=== PATIENT | female | born 1940 | race Caucasian/White ===

== ENCOUNTER 2023-07-31 11:51 | Inpatient (IN) | payer MEDICARE, OTHER ==
[~2023-07-31] VITALS: Ht 167.6 cm; Wt 80.5 kg
[~2023-07-31 11:51] MED LIST: ASCO500C17 PO; ASPI-611 PO; BENA20TA83 PO; CHOL100025 PO; ESTR0.5T6 PO; FLUO40CA PO; GLIP10TA21 PO; HYDR-3964 PO; HYDR12.55 PO; LEVO88TA7 PO; MAGN400T52 PO; METF500T PO; OMEP-84 PO; OXYB5TAB16 PO; SIMV80TA2 PO; VITA-268 PO; ZINC50CA2 PO
[2023-07-31 12:13] LABS: BASOPHILS # (AUTO) 0.1 X10'3 (0-0.2); BASOPHILS % (AUTO) 1.2 % (0-1); EOSINOPHILS # (AUTO) 0.1 X10'3 (0-0.9); EOSINOPHILS % (AUTO) 1.2 % (0-6); HEMATOCRIT 31.1 % (35.0-45.0); HEMOGLOBIN 10.3 g/dl (12.0-16.0); LYMPHOCYTES # (AUTO) 0.4 X10'3 (1.1-4.8); LYMPHOCYTES % (AUTO) 4.1 % (21-51); MEAN CORPUSCULAR HEMOGLOBIN 29.7 PG (27.0-31.0); MEAN CORPUSCULAR HGB CONC 33.2 g/dL (33.0-36.5); MEAN CORPUSCULAR VOLUME 89.6 FL (78-98); MEAN PLATELET VOLUME 9.4 FL (7.4-10.4); MONOCYTES # (AUTO) 0.7 X10'3 (0-0.9); MONOCYTES % (AUTO) 7.4 % (2-12); NEUTROPHILS # (AUTO) 8.6 X10'3 (1.8-7.7); NEUTROPHILS % (AUTO) 86.1 % (42-75); PLATELET COUNT 295 X10'3 (140-440); RED BLOOD COUNT 3.46 X10'6 (4.20-5.60); RED CELL DISTRIBUTION WIDTH 16.4 % (11.5-14.5)
[2023-07-31 12:34] LABS: ALANINE AMINOTRANSFERASE 22 U/L (12-78); ALBUMIN 2.3 G/DL (3.4-5.0); ALBUMIN/GLOBULIN RATIO 0.5 (1.1-1.5); ALKALINE PHOSPHATASE 113 IU/L (46-116); ANION GAP -1 (8-16); ASPARTATE AMINO TRANSFERASE 14 U/L (10-37); BILIRUBIN,TOTAL 0.5 MG/DL (0.1-1.0); BLOOD UREA NITROGEN 55 MG/DL (7-18); BUN/CREATININE RATIO 24.8 (10.0-20.0); CALCIUM 9.2 MG/DL (8.5-10.1); CHLORIDE 86 MMOL/L (99-107); CREATININE 2.22 MG/DL (0.40-0.90); GLUCOSE 375 MG/DL (70-104); PRO BRAIN NATRIURETIC PEPTIDE 5877 PG/ML (0-450); TOTAL PROTEIN 6.5 G/DL (6.4-8.2); eGFR 21 ML/MIN
[2023-07-31] MEDS ORDERED: azithromycin/NS 500mg/250ml 250 ML IV STA (12:38)
[2023-07-31 12:40] LABS: SODIUM 118 MMOL/L (135-145)
[2023-07-31] MEDS ORDERED: CefTRIAXone/D5W-Rocephin 1gm 50 ML IV ONE (12:40)
[2023-07-31 12:41] LABS: POTASSIUM 6.9 MMOL/L (3.5-5.1)
[2023-07-31] MEDS ORDERED: calcium gluconate inj. 2 GM in normal saline 100ml IV soln 100 ML IV STA (12:47)
[2023-07-31] MEDS ORDERED: sodium bicarbonate 0.48mEq/ml 5ml inj. INH STA (12:47)
[2023-07-31] MEDS ORDERED: insulin regular, human 10 units/0.1 ml syringe IV ONE (12:50)
[2023-07-31] MEDS ORDERED: dextrose 50%-water 50ml dispensing syringe IV ONE (12:55)
[2023-07-31] MEDS ORDERED: normal saline 1000ml 1,000 ML IV SCH (13:05)
[2023-07-31] MEDS ORDERED: sodium bicarbonate (8.4%) inj. 100 MEQ in dextrose 5%-water 1,000 ML IV ONE (13:10)
[2023-07-31] MEDS ORDERED: calcium gluconate inj. 1 GM in normal saline 100ml IV soln 100 ML IV STA (13:21)
--- NOTE | 2023-07-31 13:22 | NUR ---
RN CALLED PHARM AND REQ CA GLUCONATE AND BICARB D/T COULD NOT REMOVE FROM [facility]. PHARM WILL PREPARE BICARB AND DEL AND CHG CA GLUCONATE ORD SO IT MAY BE OBTAINED FROM [facility].
[2023-07-31] MEDS ORDERED: calcium gluconate inj. 1 GM in NS 100ml IV soln (110 ML) IV ONE ×2 (13:25→14:25)
[2023-07-31] MEDS ORDERED: calcium gluconate inj. 1 GM in normal saline 50ml IV soln 50 ML IV ONE (13:26)
[2023-07-31] MEDS ORDERED: CALCIUM GLUC 1gm/50ml NACL,iso 50 ML IV ONE ×2 (13:30→14:35)
[2023-07-31] MEDS ORDERED: SODIUM ZIRCONIUM CYCLOSILICATE 10 GM POWD.PACK PO ONE (13:46)
--- NOTE | 2023-07-31 13:48 | NUR ---
2ND IV WILL BE OBTAINED SO CA GLUCONATE AND BICARB CAN RUN AT THE SAME TIME D/T TIME AND VOLUME ORD. RN WILL ADMIN DEXTROSE AND INSULIN AT THIS TIME.
[2023-07-31] MEDS ORDERED: ringers solution, lacted 1,000 ML IV ONE (15:05)
[2023-07-31] MEDS ORDERED: furosemide 10 MG/1 ML 10ml inj IV ONE (15:05)
[2023-07-31] MEDS ORDERED: sodium bicarbonate (8.4%) 1 mEq/ml syringe IV ONE (15:05)
[2023-07-31] MEDS ORDERED: IPRA3AMP31 NEB (15:39)
[2023-07-31] MEDS ORDERED: AMLO10TA48 PO (15:41)
[2023-07-31] MEDS ORDERED: MAG-11 PO (15:42)
[2023-07-31] MEDS ORDERED: LOSA-416 PO (15:44)
[2023-07-31] MEDS ORDERED: CARV12.5 PO (15:45)
[2023-07-31] MEDS ORDERED: FURO-150 PO (15:46)
[2023-07-31] MEDS ORDERED: HYDR-3973 PO (15:47)
[2023-07-31] MEDS ORDERED: ACET-1013 PO (15:49)
[2023-07-31] MEDS ORDERED: MAGN400O6 PO (15:50)
[2023-07-31] MEDS ORDERED: BISA10SU60 RC (15:51)
[2023-07-31 16:34] LABS: ABG BASE EXCESS 2.7 mmol/L (-2.0-2.0); ABG HCO3 30.3 mmol/L (22.0-26.0); ABG OXYGEN SATURATION 92.4 % (94-97); ABG PCO2 (T) 61.3 mmHg (32.0-45.0); ABG PH (T) 7.309 (7.350-7.450); ABG PO2 (T) 63.9 mmHg (75.0-100.0); ALLEN'S TEST POSITIVE; FCOHb 0.3 % (0.0-3.9); FHHb 7.6 % (0.0-5.0); FLOW 4 L/min; FMetHb 0.2 % (0.0-1.5); FO2Hb 91.9 % (94-97); MODE NC; PATIENT TEMPERATURE 36.5; TOTAL HEMOGLOBIN 10.8 G/dl (12.0-16.0)
[2023-07-31 16:48] LABS: ALBUMIN 2.1 G/DL (3.4-5.0); ANION GAP 1 (8-16); BLOOD UREA NITROGEN 54 MG/DL (7-18); BUN/CREATININE RATIO 24.3 (10.0-20.0); CALCIUM 9.2 MG/DL (8.5-10.1); CHLORIDE 88 MMOL/L (99-107); CREATININE 2.22 MG/DL (0.40-0.90); GLUCOSE 319 MG/DL (70-104); MAGNESIUM 2.1 MG/DL (1.5-2.4); PRO BRAIN NATRIURETIC PEPTIDE 5032 PG/ML (0-450); TOTAL CARBON DIOXIDE 29.8 MMOL/L (24-32); eCRCL 18 ML/MIN; eGFR 21 ML/MIN
[2023-07-31 16:52] LABS: POTASSIUM 6.3 MMOL/L (3.5-5.1); SODIUM 119 MMOL/L (135-145)
[2023-07-31 16:57] VITALS: PULSE 52; RESP 16; O2SAT 95
[2023-07-31 17:59] LABS: ABG HCO3 29.7 mmol/L (22.0-26.0); ABG OXYGEN SATURATION 93.5 % (94-97); ABG PCO2 (T) 54.9 mmHg (32.0-45.0); ABG PH (T) 7.348 (7.350-7.450); ABG PO2 (T) 64.4 mmHg (75.0-100.0); ALLEN'S TEST POSITIVE; FCOHb 0.3 % (0.0-3.9); FHHb 6.5 % (0.0-5.0); FMetHb 0.2 % (0.0-1.5); MODE MASK - BIPAP; PATIENT TEMPERATURE 36.5; TOTAL HEMOGLOBIN 10.8 G/dl (12.0-16.0)
[2023-07-31] MEDS ORDERED: morphine 2 MG/ML inj. syringe IV PRN ×2 (18:25)
[2023-07-31] MEDS ORDERED: MESSAGE TO PHARMACY PO ONE (18:25)
[2023-07-31] MEDS ORDERED: DEXTROSE 15 GM of carb/4 tabs (each vial/BOTTLE has 4 tablets) PO PRN ×2 (18:25)
[2023-07-31] MEDS ORDERED: magnesium hydroxide 30ml (MOM) UD suspension PO PRN (18:25)
[2023-07-31] MEDS ORDERED: acetaminophen 325mg tablet PO PRN ×2 (18:25)
[2023-07-31] MEDS ORDERED: ondansetron/PF 4mg/2ml inj IV PRN (18:25)
[2023-07-31] MEDS ORDERED: dextrose 50%-water 50ml dispensing syringe IV PRN ×2 (18:25)
[2023-07-31] MEDS ORDERED: glucagon, human recombinant 1mg kit SUBCUT PRN (18:25)
[2023-07-31] MEDS ORDERED: mag hydrox/Alum hydrox/simeth 30ml oral suspension PO PRN (18:25)
[2023-07-31] MEDS ORDERED: sodium polystyrene sulfonate 15gm/60ml oral suspension PO ONE (18:25)
[2023-07-31 19:21] VITALS: PULSE 58; RESP 26; O2SAT 96
[2023-07-31] MEDS ORDERED: docusate sod 100mg capsule PO SCH (20:00)
[2023-07-31] MEDS: furosemide 40mg/4ml inj IV SCH (22:50)
[2023-07-31] MEDS: heparin, porcine 5000 units/ml vial SQ SCH (22:52)
[2023-07-31] MEDS: insulin glargine (Lantus) pen - multi-dose SQ SCH (23:07)
--- NOTE | 2023-07-31 23:30 | NUR ---
PT NOT ABLE TO TOLERATE PO KAYEXALATE. AWARE. ORDERS TO REDRAW CMP.
[2023-07-31 23:53] VITALS: PULSE 59; RESP 17; O2SAT 95
[2023-08-01] VITALS (15 sets, daily range): BP systolic 135–151; BP diastolic 40–56; PULSE 57–68; RESP 16–25; TEMP 97.1–99.3; O2SAT 94–99
[2023-08-01 00:15] LABS: ALANINE AMINOTRANSFERASE 20 U/L (12-78); ALBUMIN/GLOBULIN RATIO 0.5 (1.1-1.5); ALKALINE PHOSPHATASE 104 IU/L (46-116); ANION GAP 1 (8-16); ASPARTATE AMINO TRANSFERASE 20 U/L (10-37); BILIRUBIN,TOTAL 0.3 MG/DL (0.1-1.0); BLOOD UREA NITROGEN 53 MG/DL (7-18); BUN/CREATININE RATIO 24.8 (10.0-20.0); CHLORIDE 88 MMOL/L (99-107); CREATININE 2.14 MG/DL (0.40-0.90); GLUCOSE 315 MG/DL (70-104); TOTAL CARBON DIOXIDE 29.7 MMOL/L (24-32); TOTAL PROTEIN 5.7 G/DL (6.4-8.2); eCRCL 19 ML/MIN; eGFR 22 ML/MIN
[2023-08-01 00:19] LABS: POTASSIUM 6.4 MMOL/L (3.5-5.1)
[2023-08-01 00:20] LABS: SODIUM 119 MMOL/L (135-145)
[2023-08-01] MEDS ORDERED: sodium polystyrene sulfonate 15gm/60ml oral suspension PR ONE (00:45)
[2023-08-01 06:04] LABS: ANION GAP -1 (8-16); BLOOD UREA NITROGEN 55 MG/DL (7-18); BUN/CREATININE RATIO 26.4 (10.0-20.0); CHLORIDE 89 MMOL/L (99-107); CREATININE 2.08 MG/DL (0.40-0.90); GLUCOSE 263 MG/DL (70-104); SODIUM 121 MMOL/L (135-145); TOTAL CARBON DIOXIDE 32.7 MMOL/L (24-32); eCRCL 20 ML/MIN; eGFR 23 ML/MIN
[2023-08-01 06:13] LABS: BASOPHILS % (AUTO) 0.4 % (0-1); EOSINOPHILS # (AUTO) 0.1 X10'3 (0-0.9); EOSINOPHILS % (AUTO) 1.2 % (0-6); HEMATOCRIT 27.9 % (35.0-45.0); HEMOGLOBIN 9.5 g/dl (12.0-16.0); LYMPHOCYTES # (AUTO) 0.5 X10'3 (1.1-4.8); LYMPHOCYTES % (AUTO) 6.3 % (21-51); MEAN CORPUSCULAR HEMOGLOBIN 29.9 PG (27.0-31.0); MEAN CORPUSCULAR HGB CONC 33.9 g/dL (33.0-36.5); MEAN CORPUSCULAR VOLUME 88.1 FL (78-98); MEAN PLATELET VOLUME 9.4 FL (7.4-10.4); MONOCYTES # (AUTO) 0.6 X10'3 (0-0.9); MONOCYTES % (AUTO) 8.4 % (2-12); NEUTROPHILS # (AUTO) 6.2 X10'3 (1.8-7.7); NEUTROPHILS % (AUTO) 83.7 % (42-75); PLATELET COUNT 267 X10'3 (140-440); RED BLOOD COUNT 3.17 X10'6 (4.20-5.60); RED CELL DISTRIBUTION WIDTH 16.3 % (11.5-14.5); WHITE BLOOD COUNT 7.3 X10'3 (4.5-11.0)
--- NOTE | 2023-08-01 07:20 | NUR ---
pt transferred from ed. received report from jaxson murillo and assumed care of patient. pt transported via 2 nurses and a respiratory therapist - pt vss and is answering questions appropriately throught the bipap mask. RT Alberto states unable to take patient off of bipap at this point and is recommending a repeat abg - will cosult doctor on duty regarding abg
--- NOTE | 2023-08-01 07:22 | NUR ---
PT. TRANSFERRED TO ROOM 3012B WITH RN X2 AND RT ON HOSPITAL BED WITH MONITOR AND ON BIPAP. REPORT CALLED TO PCU NURSE BY DAJUAN REEVES RN.
[2023-08-01] MEDS ORDERED: SODIUM ZIRCONIUM CYCLOSILICATE 10 GM POWD.PACK PO SCH (08:00)
[2023-08-01] MEDS: furosemide 40mg/4ml inj IV SCH ×2 (09:30→21:37)
[2023-08-01] MEDS: heparin, porcine 5000 units/ml vial SQ SCH ×2 (09:30→20:00)
[2023-08-01] MEDS ORDERED: insulin regular, human 10 units/0.1 ml syringe IV ONE (10:00)
[2023-08-01] MEDS ORDERED: albuterol 2.5 MG/3 ML nebule NEB ONE (10:00)
[2023-08-01] MEDS ORDERED: calcium gluconate inj. 1 GM in normal saline 100ml IV soln 100 ML IV ONE (10:00)
[2023-08-01] MEDS ORDERED: dextrose 50%-water 50ml dispensing syringe IV ONE (10:00)
[2023-08-01] MEDS ORDERED: sodium polystyrene sulfonate 15gm/60ml oral suspension PO ONE (10:00)
[2023-08-01] MEDS ORDERED: CALCIUM GLUC 1gm/50ml NACL,iso 100 ML IV ONE (10:05)
[2023-08-01 11:04] LABS: ANION GAP 0 (8-16); BLOOD UREA NITROGEN 55 MG/DL (7-18); BUN/CREATININE RATIO 27.2 (10.0-20.0); CALCIUM 9.1 MG/DL (8.5-10.1); CHLORIDE 89 MMOL/L (99-107); CREATININE 2.02 MG/DL (0.40-0.90); GLUCOSE 201 MG/DL (70-104); POTASSIUM 5.8 MMOL/L (3.5-5.1); SODIUM 123 MMOL/L (135-145); TOTAL CARBON DIOXIDE 33.8 MMOL/L (24-32); eCRCL 20 ML/MIN; eGFR 24 ML/MIN
[2023-08-01 11:05] LABS: PROTHROMBIN TIME 10.4 SECONDS (9.0-12.0)
[2023-08-01 12:14] LABS: GLUCOSE,BODY FLUID 253 MG/DL; LDH,BODY FLUID 180 U/L
[2023-08-01 12:36] LABS: BFSOURCE RIGHT PLEURAL FLD; PLEURAL FLUID PH 7.453 (7.63-7.65)
[2023-08-01 12:55] LABS: BFAPPEAR BLOODY; BFSOURCE RIGHT PLEURAL FLD
[2023-08-01 12:56] LABS: BF RBC COUNT 11825 /CU MM; BF WBC COUNT 1150 /CU MM (0-1000); BFCOLOR RED; BFVOLUME 58 ML
[2023-08-01 12:58] LABS: EOSINOPHILS,BODY FLUID 1 %; LYMPHOCYTES,BODY FLUID 87 %; MONOCYTES,BODY FLUID 2 %; NEUTROPHILS,BODY FLUID 10 %
[2023-08-01] MEDS: insulin glargine (Lantus) pen - multi-dose SQ SCH (21:00)
[2023-08-02] VITALS (12 sets, daily range): BP systolic 113–152; BP diastolic 36–57; PULSE 59–74; RESP 12–20; TEMP 97.3–97.9; O2SAT 94–100
[2023-08-02 07:34] LABS: BASOPHILS % (AUTO) 0.8 % (0-1); EOSINOPHILS # (AUTO) 0.2 X10'3 (0-0.9); EOSINOPHILS % (AUTO) 3.3 % (0-6); HEMOGLOBIN 10.9 g/dl (12.0-16.0); LYMPHOCYTES # (AUTO) 0.6 X10'3 (1.1-4.8); LYMPHOCYTES % (AUTO) 10.9 % (21-51); MEAN CORPUSCULAR HEMOGLOBIN 30.1 PG (27.0-31.0); MEAN CORPUSCULAR HGB CONC 34.2 g/dL (33.0-36.5); MEAN PLATELET VOLUME 9.1 FL (7.4-10.4); MONOCYTES # (AUTO) 0.5 X10'3 (0-0.9); MONOCYTES % (AUTO) 8.2 % (2-12); NEUTROPHILS # (AUTO) 4.3 X10'3 (1.8-7.7); NEUTROPHILS % (AUTO) 76.8 % (42-75); PLATELET COUNT 310 X10'3 (140-440); RED BLOOD COUNT 3.63 X10'6 (4.20-5.60); RED CELL DISTRIBUTION WIDTH 16.6 % (11.5-14.5); WHITE BLOOD COUNT 5.6 X10'3 (4.5-11.0)
[2023-08-02 07:46] LABS: ALBUMIN 1.9 G/DL (3.4-5.0); ANION GAP -1 (8-16); BLOOD UREA NITROGEN 48 MG/DL (7-18); BUN/CREATININE RATIO 27.9 (10.0-20.0); CALCIUM 9.3 MG/DL (8.5-10.1); CHLORIDE 90 MMOL/L (99-107); CREATININE 1.72 MG/DL (0.40-0.90); GLUCOSE 108 MG/DL (70-104); POTASSIUM 5.1 MMOL/L (3.5-5.1); SODIUM 124 MMOL/L (135-145); TOTAL CARBON DIOXIDE 34.8 MMOL/L (24-32); eCRCL 24 ML/MIN; eGFR 28 ML/MIN
[2023-08-02] MEDS: HYDROcodone/acetaminophen 10/325mg tab PO PRN ×2 (10:41→20:44)
[2023-08-02] MEDS: furosemide 40mg/4ml inj IV SCH ×2 (10:41→20:24)
[2023-08-02] MEDS: heparin, porcine 5000 units/ml vial SQ SCH ×2 (10:42→20:23)
--- NOTE | 2023-08-02 14:35 | NUR ---
PRESSURE ULCER EDUCATION: DEFINITION: A pressure ulcer is an area of skin that breaks down when you stay in one position too long. The constant pressure against the skin reduces the blood flow to that area and the affected tissue dies. CAUSES: "Being bedridden or in a wheelchair "Fragile skin "Having a chronic condition, such as diabetes or vascular disease "Inability to move certain parts of your body without assistance "Older age "Incontinence of urine or stool SYMPTOMS: "A reddened area that DOES NOT turn white when pressed on - this can be the beginning of a pressure ulcer "A blister, deep sore or a crater - these can be advanced pressure ulcers FIRST AID: "Relieve the pressure on this area "Keep the area clean and dry "Call your primary doctor if you see any of the above symptoms "DO NOT massage the area "DO NOT use a donut shaped or ring shaped pillow- these actually interfere with the blood flow and cause complications PREVENTION: "Check for pressure ulcers everyday "Change position at least every two hours to relieve pressure "Use items that help relieve pressure- pillows, sheepskin, foam padding, and powders. "Keep skin clean and dry "Eat healthy well balanced meals "Exercise daily IF YOU SEE ANY OF THESE SYMPTOMS WHILE IN THE HOSPITAL - TELL YOUR NURSE IMMEDIATELY. IF YOU SEE ANY OF THESE SYMPTOMS WHILE AT HOME OR HAVE ANY QUESTIONS OR CONCERNS ABOUT PRESSURE ULCERS - CALL YOUR PRIMARY DOCTOR IMMEDIATELY. Addendum: 08/02/23 at 1435 by Dinesh Dalal RN Amended: Links added.
[2023-08-02] MEDS: aspirin 81mg, enteric-coated 1 TAB TABLET.DR PO SCH (20:24)
[2023-08-02] MEDS: carVEDilol 12.5mg tablet PO SCH (20:24)
[2023-08-02] MEDS: atorvastatin 20mg tablet PO SCH (20:25)
[2023-08-02] MEDS: insulin glargine (Lantus) pen - multi-dose SQ SCH (20:48)
--- NOTE | 2023-08-02 23:29 | NUR ---
RIGHT GROIN MATILDE REMOVED, SOME SMALL NON HEALED AREAS NOTED, SMALL AMOUNT OF GARCIA DRAINAGE NOTED, AREA CLEANSED, DRIED AND STERI STRIPS APPLIED, ABD DRESSING APPLIED LOOSELY.
--- NOTE | 2023-08-02 23:31 | NUR ---
SMALL OPEN AREA ON COCCYX CLEANSED WITH SALINE, COVERED WITH OPTIFOAM DRESSING.
[2023-08-03] VITALS (9 sets, daily range): BP systolic 122–143; BP diastolic 39–48; PULSE 60–72; RESP 16–19; TEMP 97.6–98.3; O2SAT 92–98
[2023-08-03 06:26] LABS: EOSINOPHILS # (AUTO) 0.2 X10'3 (0-0.9); MEAN PLATELET VOLUME 8.7 FL (7.4-10.4); NEUTROPHILS # (AUTO) 3.5 X10'3 (1.8-7.7); RED BLOOD COUNT 3.18 X10'6 (4.20-5.60); WHITE BLOOD COUNT 4.8 X10'3 (4.5-11.0)
[2023-08-03 06:30] LABS: BASOPHILS % (AUTO) 0.6 % (0-1); EOSINOPHILS % (AUTO) 3.7 % (0-6); HEMATOCRIT 27.8 % (35.0-45.0); HEMOGLOBIN 9.6 g/dl (12.0-16.0); LYMPHOCYTES # (AUTO) 0.5 X10'3 (1.1-4.8); MEAN CORPUSCULAR HEMOGLOBIN 30.1 PG (27.0-31.0); MEAN CORPUSCULAR HGB CONC 34.5 g/dL (33.0-36.5); MEAN CORPUSCULAR VOLUME 87.4 FL (78-98); MONOCYTES # (AUTO) 0.6 X10'3 (0-0.9); MONOCYTES % (AUTO) 12.2 % (2-12); NEUTROPHILS % (AUTO) 72.5 % (42-75); PLATELET COUNT 270 X10'3 (140-440); RED CELL DISTRIBUTION WIDTH 16.1 % (11.5-14.5)
[2023-08-03 06:37] LABS: ALBUMIN 1.7 G/DL (3.4-5.0); ANION GAP -2 (8-16); BLOOD UREA NITROGEN 46 MG/DL (7-18); BUN/CREATININE RATIO 29.1 (10.0-20.0); CALCIUM 8.7 MG/DL (8.5-10.1); CHLORIDE 91 MMOL/L (99-107); CREATININE 1.58 MG/DL (0.40-0.90); GLUCOSE 186 MG/DL (70-104); POTASSIUM 4.7 MMOL/L (3.5-5.1); SODIUM 127 MMOL/L (135-145); TOTAL CARBON DIOXIDE 37.7 MMOL/L (24-32); eCRCL 26 ML/MIN; eGFR 31 ML/MIN
--- NOTE | 2023-08-03 06:39 | NUR ---
Patient report given, questions answered & plan of care reviewed with ALFIE Estrada
[2023-08-03] MEDS: carVEDilol 12.5mg tablet PO SCH ×2 (08:42→21:31)
[2023-08-03] MEDS: FLUoxetine 20mg capsule PO SCH (08:42)
[2023-08-03] MEDS: cholecalciferol (vitamin D3) 1,000 unit (25mcg) tablet PO SCH (08:42)
[2023-08-03] MEDS: losartan 50mg tablet PO SCH (08:43)
[2023-08-03] MEDS: levoTHYROXINE 88mcg tablet PO SCH (08:44)
[2023-08-03] MEDS: heparin, porcine 5000 units/ml vial SQ SCH ×2 (08:45→20:00)
[2023-08-03] MEDS: furosemide 40mg/4ml inj IV SCH ×2 (08:45→20:25)
--- NOTE | 2023-08-03 18:29 | NUR ---
Problems reprioritized. Patient report given, questions answered & plan of care reviewed with Nunu ANALYTICAL TECH.
[2023-08-03] MEDS: insulin Lispro (HumaLOG) vial - multi-dose SQ SCH ×2 (18:38→21:49)
[2023-08-03] MEDS: HYDROcodone/acetaminophen 10/325mg tab PO PRN ×2 (18:42→22:53)
[2023-08-03] MEDS: atorvastatin 20mg tablet PO SCH (21:31)
[2023-08-03] MEDS: aspirin 81mg, enteric-coated 1 TAB TABLET.DR PO SCH (21:31)
[2023-08-03] MEDS: insulin glargine (Lantus) pen - multi-dose SQ SCH (21:47)
[2023-08-04] VITALS (9 sets, daily range): BP systolic 121–151; BP diastolic 42–55; PULSE 57–67; RESP 16–18; TEMP 96.2–98.9; O2SAT 94–98
[2023-08-04] MEDS ORDERED: cosyntropin 250mcg inj IV ONE (06:00)
[2023-08-04 06:29] LABS: ALBUMIN 1.8 G/DL (3.4-5.0); ANION GAP -2 (8-16); BLOOD UREA NITROGEN 46 MG/DL (7-18); BUN/CREATININE RATIO 28.2 (10.0-20.0); CALCIUM 8.4 MG/DL (8.5-10.1); CHLORIDE 91 MMOL/L (99-107); CREATININE 1.63 MG/DL (0.40-0.90); GLUCOSE 191 MG/DL (70-104); POTASSIUM 4.5 MMOL/L (3.5-5.1); SODIUM 128 MMOL/L (135-145); TOTAL CARBON DIOXIDE 38.9 MMOL/L (24-32); eCRCL 25 ML/MIN; eGFR 30 ML/MIN
--- NOTE | 2023-08-04 06:31 | NUR ---
This RN has reviewed and agrees w/the SURVEILLANCE MONITOR's physical assessment of this pt.
--- NOTE | 2023-08-04 06:32 | NUR ---
Pt scheduled for cortisol labs - baseline drawn at 0305, cortrosyn given @ 0601, 1st draw scheduled at 07, second/final draw scheduled at 900. Lab draws 700/900 need to be brought to lab individually, then lab will send all three to [facility] for processing. Information given verbally and in writing to oncgeovanna TRANSMITTER SUPERVISOR in report.
[2023-08-04 06:37] LABS: BASOPHILS % (AUTO) 0.8 % (0-1); EOSINOPHILS # (AUTO) 0.2 X10'3 (0-0.9); EOSINOPHILS % (AUTO) 4.3 % (0-6); HEMATOCRIT 28.4 % (35.0-45.0); HEMOGLOBIN 9.7 g/dl (12.0-16.0); LYMPHOCYTES # (AUTO) 0.6 X10'3 (1.1-4.8); LYMPHOCYTES % (AUTO) 13.1 % (21-51); MEAN CORPUSCULAR HEMOGLOBIN 29.9 PG (27.0-31.0); MEAN CORPUSCULAR VOLUME 87.9 FL (78-98); MEAN PLATELET VOLUME 9.1 FL (7.4-10.4); MONOCYTES # (AUTO) 0.7 X10'3 (0-0.9); MONOCYTES % (AUTO) 14.7 % (2-12); NEUTROPHILS # (AUTO) 3.2 X10'3 (1.8-7.7); NEUTROPHILS % (AUTO) 67.1 % (42-75); PLATELET COUNT 245 X10'3 (140-440); RED BLOOD COUNT 3.23 X10'6 (4.20-5.60); RED CELL DISTRIBUTION WIDTH 16.1 % (11.5-14.5); WHITE BLOOD COUNT 4.7 X10'3 (4.5-11.0)
--- NOTE | 2023-08-04 06:45 | NUR ---
Problems reprioritized. Patient report given, questions answered & plan of care reviewed with Nunu BLOOD BANK CALENDAR CONTROL CLERK.
[2023-08-04] MEDS: furosemide 40mg/4ml inj IV SCH ×2 (08:29→20:34)
[2023-08-04] MEDS: FLUoxetine 20mg capsule PO SCH (08:43)
[2023-08-04] MEDS: levoTHYROXINE 88mcg tablet PO SCH (08:43)
[2023-08-04] MEDS: losartan 50mg tablet PO SCH (08:43)
[2023-08-04] MEDS: cholecalciferol (vitamin D3) 1,000 unit (25mcg) tablet PO SCH (08:43)
[2023-08-04] MEDS: heparin, porcine 5000 units/ml vial SQ SCH ×2 (08:44→20:33)
[2023-08-04] MEDS: carVEDilol 12.5mg tablet PO SCH ×2 (08:45→20:22)
--- NOTE | 2023-08-04 11:45 | NUR ---
Patient is just finished with her breakfast unable to cover BG due to almost time for lunch BG check.
[2023-08-04] MEDS: insulin Lispro (HumaLOG) vial - multi-dose SQ SCH ×2 (14:47→20:31)
--- NOTE | 2023-08-04 15:23 | NUR ---
AGREE WITH FACING GRINDER AM ASSESSMENT.
--- NOTE | 2023-08-04 18:28 | NUR ---
Problems reprioritized. Patient report given, questions answered & plan of care reviewed with Librado WILLIAMSON.
[2023-08-04] MEDS: aspirin 81mg, enteric-coated 1 TAB TABLET.DR PO SCH (20:22)
[2023-08-04] MEDS: atorvastatin 20mg tablet PO SCH (20:22)
[2023-08-04] MEDS: HYDROcodone/acetaminophen 10/325mg tab PO PRN (20:27)
[2023-08-04] MEDS: insulin glargine (Lantus) pen - multi-dose SQ SCH (20:33)
--- NOTE | 2023-08-05 06:23 | NUR ---
Patient in room PCU 3012. I have received report from Librado WILLIAMSON and had the opportunity to ask questions and assume patient care.
[2023-08-05 06:59] LABS: ALBUMIN 1.9 G/DL (3.4-5.0); ANION GAP -2 (8-16); BLOOD UREA NITROGEN 44 MG/DL (7-18); BUN/CREATININE RATIO 28.8 (10.0-20.0); CALCIUM 8.4 MG/DL (8.5-10.1); CHLORIDE 91 MMOL/L (99-107); CREATININE 1.53 MG/DL (0.40-0.90); GLUCOSE 195 MG/DL (70-104); POTASSIUM 4.6 MMOL/L (3.5-5.1); SODIUM 128 MMOL/L (135-145); TOTAL CARBON DIOXIDE 38.7 MMOL/L (24-32); eCRCL 27 ML/MIN; eGFR 32 ML/MIN
[2023-08-05 07:00] VITALS: BP 133/41; PULSE 63; RESP 15; TEMP 97.1; O2SAT 93
[2023-08-05 07:05] LABS: BASOPHILS # (AUTO) 0.1 X10'3 (0-0.2); EOSINOPHILS # (AUTO) 0.3 X10'3 (0-0.9); HEMATOCRIT 28.8 % (35.0-45.0); HEMOGLOBIN 9.7 g/dl (12.0-16.0); LYMPHOCYTES # (AUTO) 0.7 X10'3 (1.1-4.8); LYMPHOCYTES % (AUTO) 11.2 % (21-51); MEAN CORPUSCULAR HEMOGLOBIN 29.8 PG (27.0-31.0); MEAN CORPUSCULAR HGB CONC 33.7 g/dL (33.0-36.5); MEAN CORPUSCULAR VOLUME 88.4 FL (78-98); MEAN PLATELET VOLUME 8.9 FL (7.4-10.4); MONOCYTES # (AUTO) 0.8 X10'3 (0-0.9); MONOCYTES % (AUTO) 12.8 % (2-12); NEUTROPHILS # (AUTO) 4.4 X10'3 (1.8-7.7); PLATELET COUNT 272 X10'3 (140-440); RED BLOOD COUNT 3.26 X10'6 (4.20-5.60); RED CELL DISTRIBUTION WIDTH 16.1 % (11.5-14.5); WHITE BLOOD COUNT 6.4 X10'3 (4.5-11.0)
[2023-08-05] MEDS: furosemide 40mg/4ml inj IV SCH (07:57)
[2023-08-05] MEDS: heparin, porcine 5000 units/ml vial SQ SCH (08:02)
[2023-08-05] MEDS: cholecalciferol (vitamin D3) 1,000 unit (25mcg) tablet PO SCH (08:49)
[2023-08-05] MEDS: losartan 50mg tablet PO SCH (08:49)
[2023-08-05] MEDS: levoTHYROXINE 88mcg tablet PO SCH (08:49)
[2023-08-05] MEDS: HYDROcodone/acetaminophen 10/325mg tab PO PRN (08:49)
[2023-08-05] MEDS: carVEDilol 12.5mg tablet PO SCH (08:50)
[2023-08-05] MEDS: insulin Lispro (HumaLOG) vial - multi-dose SQ SCH ×2 (09:39→14:02)
[2023-08-05 10:00] VITALS: BP 99/41; PULSE 60; RESP 22; TEMP 97.9; O2SAT 99
--- NOTE | 2023-08-05 14:45 | NUR ---
Patient transfered to [facility] with all belongings. IV removed and tele monitor removed and returned to teletypewriter installer. Transfered into wheel chair and left unit with Martha cargo.
--- NOTE | 2023-08-05 14:50 | NUR ---
Called report to RPA nurse Jessica JUDGE. All questions answered.
[2023-08-22] MEDS ORDERED: CARV12.529 PO (16:01)
[2023-08-22] MEDS ORDERED: OMEP20TA23 PO (16:01)
[2023-08-22] MEDS ORDERED: GLIP5TAB13 PO (16:01)
[2023-08-22] MEDS ORDERED: AMLO10TA PO (16:01)
[2023-08-22] MEDS ORDERED: OXYB5TAB16 PO (16:01)
[2023-08-22] MEDS ORDERED: SYN0.088T PO (16:01)
[2023-08-22] MEDS ORDERED: HYDR-3964 PO (16:01)
[2023-08-22] MEDS ORDERED: FURO-150 PO (16:01)
[2023-08-22] MEDS ORDERED: FURO40TA4 PO (16:01)
[2023-08-22] MEDS ORDERED: SIMV-42 PO (16:01)
[2023-08-22] MEDS ORDERED: DOCU-148 PO (16:01)
[2023-08-22] MEDS ORDERED: LIDO700A32 TOP (16:01)
[2023-08-22] MEDS ORDERED: ONDA-103 PO (16:02)
[2023-09-09] MEDS ORDERED: HYDR12.55 PO (13:25)
[2023-09-09] MEDS ORDERED: METF-1203 PO (13:25)
[2023-09-09] MEDS ORDERED: GLIP10TA21 PO (13:25)
[2023-09-09] MEDS ORDERED: BENA20TA82 PO (13:25)
[2023-09-09] MEDS ORDERED: BENA20TA83 PO (13:25)
[2023-09-09] MEDS ORDERED: CIME200T12 PO (13:25)
[2023-09-09] MEDS ORDERED: MAGN400T52 PO (13:25)
[2023-09-09] MEDS ORDERED: FLUO40CA PO (13:25)
== END 2023-08-05 14:45 | DRG 193 ==
LOC: ER 11:52 → ED HOLD 18:25 → EDBEDREQ 08-01 03:48 → PCU 3S 08-01 07:21
PROVIDERS: ADMIT Internal Medicine; ATTEND Internal Medicine
PROC: 0W993ZZ Drainage of Right Pleural Cavity, Percutaneous Approach (ICD-10-PCS; principal; 2023-08-01)
PROC: 5A09457 Assistance with Respiratory Ventilation, 24-96 Consecutive Hours, Continuous Positive Airway Pressure (ICD-10-PCS; 2023-08-01)
DX: J18.9 Pneumonia, unspecified organism (principal); E43 Unspecified severe protein-calorie malnutrition; J96.21 Acute and chronic respiratory failure with hypoxia; I50.33 Acute on chronic diastolic (congestive) heart failure; I13.0 Hypertensive heart and chronic kidney disease with heart failure and stage 1 through stage 4 chronic kidney disease, or unspecified chronic kidney disease; E87.1 Hypo-osmolality and hyponatremia; N17.9 Acute kidney failure, unspecified; I25.110 Atherosclerotic heart disease of native coronary artery with unstable angina pectoris; F11.20 Opioid dependence, uncomplicated; M47.9 Spondylosis, unspecified; E03.9 Hypothyroidism, unspecified; N18.9 Chronic kidney disease, unspecified; E11.22 Type 2 diabetes mellitus with diabetic chronic kidney disease; I25.5 Ischemic cardiomyopathy; E78.5 Hyperlipidemia, unspecified; E86.0 Dehydration; E87.5 Hyperkalemia; Z88.5 Allergy status to narcotic agent; Z88.0 Allergy status to penicillin; Z79.899 Other long term (current) drug therapy; Z79.1 Long term (current) use of non-steroidal anti-inflammatories (NSAID); Z85.41 Personal history of malignant neoplasm of cervix uteri; Z68.28 Body mass index [BMI] 28.0-28.9, adult; Z90.710 Acquired absence of both cervix and uterus
CPT/HCPCS: 32555; 36415; 36600; 70450; 71045; 71250; 80048; 80053; 82024; 82803; 82945; 82948; 83605; 83615; 83735; 83880; 83930; 83986; 84132; 84157; 84484; 85018; 85025; 85610; 87040; 87070; 89051; 92508; 92616; 93005; 93308; 94660; 94760; 97110; 97116; 97161; 97530; 99285; A4338; A4615; A4649; A6212; A6213; A6223; A6253; A6258; A6449; G0378; J0456; J0610; J0696; J1644; J1815; J1940; J3490; J7070; J7120

== ENCOUNTER 2023-10-20 17:38 | Emergency (ER) | payer MEDICARE, OTHER ==
[~2023-10-20 17:38] MED LIST changes: +AMLO10TA PO; -ASCO500C17 PO; -ASPI-611 PO; +CARV12.529 PO; -CHOL100025 PO; -ESTR0.5T6 PO; +FURO-150 PO; -HYDR12.55 PO; -LEVO88TA7 PO; +LIDO700A32 TOP; +METF-1203 PO; -METF500T PO; -OMEP-84 PO; +PANT40TA54 PO; +SIMV-42 PO; -SIMV80TA2 PO; +SYN0.088T PO; -VITA-268 PO; -ZINC50CA2 PO
[2023-10-20 19:59] LABS: BASOPHILS # (AUTO) 0.1 X10'3 (0-0.2); BASOPHILS % (AUTO) 1.2 % (0-1); EOSINOPHILS # (AUTO) 0.4 X10'3 (0-0.9); EOSINOPHILS % (AUTO) 6.2 % (0-6); HEMATOCRIT 32.2 % (35.0-45.0); HEMOGLOBIN 10.8 g/dl (12.0-16.0); LYMPHOCYTES # (AUTO) 0.9 X10'3 (1.1-4.8); LYMPHOCYTES % (AUTO) 14.4 % (21-51); MEAN CORPUSCULAR HEMOGLOBIN 30.1 PG (27.0-31.0); MEAN CORPUSCULAR HGB CONC 33.5 g/dL (33.0-36.5); MEAN PLATELET VOLUME 9.4 FL (7.4-10.4); MONOCYTES # (AUTO) 0.5 X10'3 (0-0.9); NEUTROPHILS # (AUTO) 4.2 X10'3 (1.8-7.7); NEUTROPHILS % (AUTO) 70.2 % (42-75); PLATELET COUNT 224 X10'3 (140-440); RED BLOOD COUNT 3.57 X10'6 (4.20-5.60); RED CELL DISTRIBUTION WIDTH 15.2 % (11.5-14.5)
[2023-10-20 20:15] LABS: ALANINE AMINOTRANSFERASE 16 U/L (12-78); ALBUMIN 2.9 G/DL (3.4-5.0); ALBUMIN/GLOBULIN RATIO 0.7 (1.1-1.5); ALKALINE PHOSPHATASE 130 IU/L (46-116); ANION GAP 8 (8-16); ASPARTATE AMINO TRANSFERASE 17 U/L (10-37); BILIRUBIN,TOTAL 0.4 MG/DL (0.1-1.0); BLOOD UREA NITROGEN 54 MG/DL (7-18); BUN/CREATININE RATIO 13.9 (10.0-20.0); CALCIUM 9.1 MG/DL (8.5-10.1); CHLORIDE 93 MMOL/L (99-107); CREATININE 3.89 MG/DL (0.40-0.90); SODIUM 129 MMOL/L (135-145); TOTAL CARBON DIOXIDE 28.4 MMOL/L (24-32); TOTAL PROTEIN 7.1 G/DL (6.4-8.2); eGFR 11 ML/MIN
[2023-10-20 20:20] LABS: POTASSIUM 5.3 MMOL/L (3.5-5.1)
[2023-10-20 20:25] LABS: GLUCOSE 482 MG/DL (70-104)
[2023-10-20] MEDS ORDERED: furosemide 10 MG/1 ML 10ml inj IV ONE (20:35)
[2023-10-20] MEDS ORDERED: insulin regular, human 10 units/0.1 ml syringe IV ONE (20:35)
[2023-10-20 20:52] LABS: BILIRUBIN,URINE NEGATIVE (Neg); CLARITY,URINE CLOUDY (Clear); COLOR,URINE YELLOW (Yellow); GLUCOSE, URINE >=1000 mg/dl (Neg); KETONES,URINE NEGATIVE (Neg); LEUKOCYTE ESTERASE ,URINE TRACE (Neg); NITRITES, URINE NEGATIVE (Neg); OCCULT BLOOD,URINE SMALL (Neg); PH,URINE 6.5 (4.8-8.0); PROTEIN,URINE 100 mg/dl (Neg); UROBILINOGEN,URINE 0.2 E.U/dL (0.2-1.0)
[2023-10-20 20:53] LABS: UA COLLECTION TYPE CLN CATCH MIDSTREAM
[2023-10-20 21:46] VITALS: O2SAT 97
[2023-10-20 22:02] LABS: BACTERIA,URINE 4+ /HPF (Neg); MUCUS STRANDS NONE SEEN /LPF (Neg); RBC,URINE 0-2 /HPF (0-2); SQUAMOUS EPITHELIAL CELL,UR FEW /LPF (FEW); WBC CLUMPS,URINE MANY /HPF (NEGATIVE); WBC,URINE 50-100 /HPF (0-4)
[2023-10-20 23:13] VITALS: BP 198/83; PULSE 79; RESP 20; TEMP 98
[2023-10-24] MEDS ORDERED: LEVO250T74 PO (08:14)
== END 2023-10-20 23:16 | disposition home or self-care (01) ==
LOC: ER 17:38
DX: I11.0 Hypertensive heart disease with heart failure (principal); R73.9 Hyperglycemia, unspecified; E11.9 Type 2 diabetes mellitus without complications; E03.9 Hypothyroidism, unspecified; Z88.0 Allergy status to penicillin; Z88.5 Allergy status to narcotic agent; Z79.899 Other long term (current) drug therapy
CPT/HCPCS: 36415; 71045; 80053; 81001; 82948; 83880; 84484; 85025; 87077; 87088; 87186; 93005; 96374; 96375; 99285; J1815; J1940

== ENCOUNTER 2025-01-03 16:25 | Emergency (ER) | payer MEDICARE, OTHER ==
[~2025-01-03] VITALS: Ht 162.6 cm; Wt 49.9 kg
[~2025-01-03 16:25] MED LIST changes: -OXYB5TAB16 PO; +OXYB5TAB21 PO
[2025-01-03 17:43] LABS: BASOPHILS % (AUTO) 0.6 % (0-1); EOSINOPHILS # (AUTO) 0.1 X10'3 (0-0.9); EOSINOPHILS % (AUTO) 1.4 % (0-6); HEMATOCRIT 34.8 % (35.0-45.0); LYMPHOCYTES # (AUTO) 1.3 X10'3 (1.1-4.8); LYMPHOCYTES % (AUTO) 19.1 % (21-51); MEAN CORPUSCULAR HGB CONC 34.5 g/dL (33.0-36.5); MEAN CORPUSCULAR VOLUME 89.9 FL (78-98); MONOCYTES # (AUTO) 0.4 X10'3 (0-0.9); MONOCYTES % (AUTO) 6.6 % (2-12); NEUTROPHILS # (AUTO) 4.8 X10'3 (1.8-7.7); NEUTROPHILS % (AUTO) 72.3 % (42-75); PLATELET COUNT 175 X10'3 (140-440); RED BLOOD COUNT 3.87 X10'6 (4.20-5.60); RED CELL DISTRIBUTION WIDTH 13.5 % (11.5-14.5); WHITE BLOOD COUNT 6.6 X10'3 (4.5-11.0)
[2025-01-03 18:00] LABS: ALANINE AMINOTRANSFERASE 24 U/L (12-78); ALBUMIN 3.5 G/DL (3.4-5.0); ALBUMIN/GLOBULIN RATIO 1.1 (1.1-1.5); ALKALINE PHOSPHATASE 72 IU/L (46-116); ANION GAP 5 (8-16); ASPARTATE AMINO TRANSFERASE 21 U/L (10-37); BILIRUBIN,TOTAL 0.5 MG/DL (0.1-1.0); BLOOD UREA NITROGEN 70 MG/DL (7-18); BUN/CREATININE RATIO 29.4 (10.0-20.0); CALCIUM 9.2 MG/DL (8.5-10.1); CHLORIDE 100 MMOL/L (99-107); CREATININE 2.38 MG/DL (0.40-0.90); GLUCOSE 201 MG/DL (70-104); POTASSIUM 3.9 MMOL/L (3.5-5.1); SODIUM 141 MMOL/L (135-145); TOTAL CARBON DIOXIDE 36.2 MMOL/L (24-32); TOTAL PROTEIN 6.8 G/DL (6.4-8.2); eCRCL 14 ML/MIN; eGFR 19 ML/MIN
[2025-01-03 18:03] LABS: D-DIMER 0.89 MG/L FEU (0-0.50)
[2025-01-03 18:07] LABS: PRO BRAIN NATRIURETIC PEPTIDE 5178 PG/ML (0-450)
[2025-01-03] MEDS: acetaminophen 325mg tablet PO ONE (18:26)
[2025-01-03 19:55] LABS: BILIRUBIN,URINE NEGATIVE (Neg); CLARITY,URINE CLEAR (Clear); COLOR,URINE YELLOW (Yellow); GLUCOSE, URINE NEGATIVE (Neg); KETONES,URINE NEGATIVE (Neg); LEUKOCYTE ESTERASE ,URINE NEGATIVE (Neg); NITRITES, URINE NEGATIVE (Neg); OCCULT BLOOD,URINE TRACE-INTACT (Neg); PH,URINE 6.5 (4.8-8.0); PROTEIN,URINE TRACE mg/dl (Neg); UROBILINOGEN,URINE 0.2 E.U/dL (0.2-1.0)
[2025-01-03 20:04] LABS: UA COLLECTION TYPE CLN CATCH MIDSTREAM
[2025-01-03 20:08] LABS: BACTERIA,URINE 1+ /HPF (Neg); RBC,URINE 0-2 /HPF (0-2); SQUAMOUS EPITHELIAL CELL,UR FEW /LPF (FEW); WBC,URINE 0-4 /HPF (0-4)
[2025-01-03 21:02] VITALS: BP 131/68; PULSE 88; RESP 16; TEMP 98.1; O2SAT 96
== END 2025-01-03 21:13 | disposition home or self-care (01) ==
LOC: ER 16:26
DX: B34.9 Viral infection, unspecified (principal); I50.9 Heart failure, unspecified; E11.22 Type 2 diabetes mellitus with diabetic chronic kidney disease; N18.9 Chronic kidney disease, unspecified; E03.9 Hypothyroidism, unspecified; I25.10 Atherosclerotic heart disease of native coronary artery without angina pectoris; Z20.822 Contact with and (suspected) exposure to COVID-19; Z85.41 Personal history of malignant neoplasm of cervix uteri; Z88.0 Allergy status to penicillin; Z88.5 Allergy status to narcotic agent; Z88.8 Allergy status to other drugs, medicaments and biological substances; Z98.890 Other specified postprocedural states
CPT/HCPCS: 36415; 71045; 80053; 81001; 83880; 84484; 85025; 85379; 87502; 87503; 87811; 93005; 99285